=== PATIENT | female | born 1960 | race Caucasian/White ===

== ENCOUNTER 2019-11-01 23:57 | Inpatient (IN) | payer MEDICARE, MEDICAID, OTHER ==
[2019-11-02] MEDS ORDERED: Aspirin 325 MG TAB ONE (00:12)
[2019-11-02] MEDS ORDERED: Vancomycin 1 GM/200 ML BAG ONE (00:13)
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
[2019-11-02 01:18] LABS: CKMB 3.2 ng/mL (0-6.6)
[2019-11-02] MEDS ORDERED: Ondansetron PF 4 MG/2 ML Vial IVP PRN (02:19)
[2019-11-02] MEDS ORDERED: Ondansetron ODT 4 MG TAB PO PRN (02:19)
[2019-11-02] MEDS ORDERED: Acetaminophen 325 MG TAB PO PRN (02:19)
[2019-11-02 02:29] LABS: SARS-CoV-2 NAA Rapid Test Not Detected (NotDetected)
[2019-11-02 02:34] LABS: Iron 49 ug/dL (50-170); Iron Binding Capacity, Total 149 mcg/dL (265-497)
[2019-11-02 02:51] LABS: Thyroid Stimulating Hormone 19.83 uIU/mL (0.35-4.94)
[2019-11-02 03:29] LABS: Troponin I 0.053 ng/mL (< 0.028)
[2019-11-02] MEDS ORDERED: Levothyroxine Sodium 75 MCG TAB PO SCH (06:00)
[2019-11-02] MEDS: Lactated Ringer's 1,000 ML IV SCH ×2 (06:04→17:52)
[2019-11-02 06:48] LABS: Troponin I 0.045 ng/mL (< 0.028)
[2019-11-02 07:56] LABS: Ferritin 520.6 ng/mL (10-291)
[2019-11-02] MEDS: Cefepime 2 GM in Sodium Chloride 0.9% 100 ML IVPB SCH ×3 (08:48→23:18)
[2019-11-02] MEDS ORDERED: Famotidine/PF 20 mg/2ml Vial SLOW IVP SCH (09:00)
[2019-11-02] MEDS ORDERED: Vancomycin HCl 1.5 GM in Sodium Chloride 0.9% 250 ML 300 ML IVPB SCH (09:00)
[2019-11-02] MEDS ORDERED: Famotidine 20 MG TAB PO SCH (09:00)
[2019-11-02] MEDS: Clotrimazole 1 % Cream 30 GM TUBE TOP SCH ×2 (10:37→20:30)
[2019-11-02] MEDS: Enoxaparin Sodium 40 MG/0.4 ML SYRINGE SC SCH (10:37)
[2019-11-02] MEDS: Vancomycin 1 GM in Premix Bag 1 BAG IVPB SCH (12:28)
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
[2019-11-02 18:56] LABS: Legionella Urinary Ag Negative (Negative)
[2019-11-02 18:57] LABS: Strep pneumo Urine Ag NEGATIVE (NEGATIVE)
[2019-11-02] MEDS: levETIRAcetam 500 MG TAB PO SCH (20:30)
[2019-11-03] MEDS: Vancomycin 1 GM in Premix Bag 1 BAG IVPB SCH ×2 (00:49→12:13)
--- NOTE | 2019-11-03 05:55 | PDOC.FM ---
- Subjective Subjective: Patient is sitting up eating breakfast with nurse, nonverbal. Currently on 3L O2. No acute events overnight. - Objective MAR Reviewed: Yes Vital Signs & Weight: Vital Signs (12 hours) Temp Pulse Resp BP Pulse Ox 11/03/19 03:45 98.8 F 80 20 122/70 97 11/02/19 19:10 98.7 F 88 20 109/73 96 Weight Weight 57.379 kg I&O: 11/01/19 11/02/19 11/03/19 06:59 06:59 06:59 Intake Total 1385 Output Total 225 Balance 1160 Result Diagrams: 11/03/19 08:52 11/03/19 08:52 Radiology Reviewed by me: Yes Phys Exam - Physical Examination Constitutional: NAD well developed HEENT: PERRLA, moist MMs Neck: supple Respiratory: no wheezing, clear to auscultation bilateral Cardiovascular: RRR, no significant murmur Gastrointestinal: soft, positive bowel sounds Musculoskeletal: no edema Neurological: non-focal nonverbal Deviation from normal: macular rash bilateral feet, erythema with scaling, multiple, scattered Dx/Plan - Plan Plan: #Acute Hypoxic Resp Failure 2/2 PNA recent hospitalization for PNA requiring intubation, d/c 10/27 CXR: multifocal PNA Vanc, cefepime, levaquin due to recent hospitalization requiring intubation BNP 447, Echo: EF 50-55%, no diastolic d/f, Trop .049>.059>.053 Procal neg, covid neg, lactic acid 1 Ur legionella and strep penumonia neg -will continue to monitor oxygen status - CM consult for discharge planning #Normocytic Anemia Iron studies reveal likely anemia of chronic disease - will f/u with PCP #Tinea pedis - clotrimazole BID to affected area #Hx of Down syndrome # Dementia Discussed patients baseline with sister yesterday due to patient nonverbal, per sister patient appeared to be at baseline 11/01 - resumed home meds Hx Epilepsy - resumed home meds #Hx of hypothryoidism - resumed home meds #Hx of Osteoporosis - resume home meds DVT Proph: lovenox Diet: HH PCP: SILVIA ([place]) Dispo: LOS<48, likely d/c today
[2019-11-03] MEDS: Cefepime 2 GM in Sodium Chloride 0.9% 100 ML IVPB SCH ×3 (06:32→23:25)
[2019-11-03] MEDS: Lactated Ringer's 1,000 ML IV SCH ×2 (07:16→21:45)
[2019-11-03 08:59] LABS: #Basophils 0.1 thou/uL (0.0-0.2); #Eosinphils 0.2 thou/uL (0.0-0.7); #Lymphocytes 2.2 thou/uL (1.20-3.40); #Monocytes 0.4 thou/uL (0.11-0.59); #Neutrophils 4.8 thou/uL (1.40-6.50); %Basophils 1.3 % (0.0-1.0); %Eosinophils 3.1 % (0.0-10.0); %Lymphocytes 28.7 % (21.0-51.0); %Monocytes 5.4 % (0.0-10.0); %Neutrophils 61.4 % (42.0-75.0); Hemoglobin 10.3 g/dL (12.0-16.0); Mean Corpuscular HGB CONC 31.2 g/dL (32.0-36.0); Mean Corpuscular Hemoglobin 32.2 pg (27.0-31.0); Mean Platelet Volume 8.7 fL (7.4-10.4); Platelet Count 253 thou/uL (130-400); RBC Distribution Width 15.2 % (11.5-14.5); Red Blood Cell (RBC) Count 3.21 mill/uL (4.20-5.40); White Blood Cell (WBC) Count 7.8 thou/uL (4.8-10.8)
[2019-11-03] MEDS ORDERED: Non-Formulary Item 1 EACH (Oxybutynin Chloride [Oxybutynin Chloride Er] 10 MG) PO SCH (09:00)
[2019-11-03] MEDS ORDERED: Oxybutynin 5 MG TAB PO SCH (09:00)
[2019-11-03] MEDS ORDERED: CALCIUM CARBONATE 600 MG PO SCH (09:00)
[2019-11-03] MEDS ORDERED: Aspirin 81 mg Enteric Coated Tablet PO SCH (09:00)
[2019-11-03] MEDS ORDERED: Calcium Carbonate 600 MG TAB PO SCH (09:00)
[2019-11-03] MEDS ORDERED: Alendronate Sodium 70 mg Tablet PO SCH (09:00)
[2019-11-03] MEDS ORDERED: Levothyroxine Sodium 125 MCG TAB PO SCH (09:00)
[2019-11-03] MEDS ORDERED: GALANTAMINE HBR 8 MG PO SCH (09:00)
[2019-11-03 09:18] LABS: Anion Gap 9 mmol/L (10-20); BUN (Urea Nitrogen) 7 mg/dL (9.8-20.1); Calc. Creatinine Clearance 102 mL/min (70-130); Calcium 7.1 mg/dL (7.8-10.44); Carbon Dioxide 29 mmol/L (22-29); Chloride 101 mmol/L (98-107); Estimated GFR-MDRD Greater than 90; Glucose 75 mg/dL (70-105); Potassium 3.4 mmol/L (3.5-5.1); Sodium 136 mmol/L (136-145)
[2019-11-03] MEDS: levETIRAcetam 500 MG TAB PO SCH ×2 (09:51→21:37)
[2019-11-03] MEDS: Enoxaparin Sodium 40 MG/0.4 ML SYRINGE SC SCH (09:52)
[2019-11-03] MEDS: Clotrimazole 1 % Cream 30 GM TUBE TOP SCH ×2 (10:06→21:38)
[2019-11-03 12:34] LABS: Vancomycin, Trough 17.2 ug/mL
--- NOTE | 2019-11-03 14:07 | PRG ---
DATE OF SERVICE: 11/03/2019 Ms. Casper is awake and alert, in no distress. She demonstrates no respiratory distress nor any respiratory symptoms at all. We can begin to transition her to oral antibiotics in anticipation of discharge in 1 or 2 days. Job ID: [id number]
[2019-11-03] MEDS ORDERED: Mirtazapine 15 MG TAB PO SCH (14:15)
[2019-11-03] MEDS ORDERED: Lactated Ringer's 1,000 ML IV SCH (16:00)
[2019-11-04] MEDS ORDERED: Levothyroxine 150 MCG TAB PO SCH (06:00)
[2019-11-04] MEDS: Cefepime 2 GM in Sodium Chloride 0.9% 100 ML IVPB SCH ×2 (06:32→15:44)
[2019-11-04] MEDS ORDERED: Acetaminophen 325 MG TAB PER TUBE PRN (07:45)
[2019-11-04] MEDS ORDERED: Ondansetron ODT 4 MG TAB PER TUBE PRN (07:45)
--- NOTE | 2019-11-04 08:07 | PDOC.FM ---
- Subjective Subjective: Patient sitting up in bed, smiling. Per nurse she looks the best she has seen her. Yesterday evening, patient had hypotension, with lowest 88/58, and in the 90s to low 100s and she was given a bolus of fluids. Per nurse, she got report that they just switched her bp cuff this morning and thinks that could have been the cause. In the room her bp recheck was 113/80s. - Objective MAR Reviewed: Yes Vital Signs & Weight: Vital Signs (12 hours) Temp Pulse Resp BP Pulse Ox 11/04/19 04:00 97.5 F L 67 18 133/70 96 11/03/19 23:30 97.5 F L 69 18 95/61 97 Weight Weight 57.379 kg I&O: 11/03/19 11/04/19 11/05/19 06:59 06:59 06:59 Intake Total 1385 2490 Output Total 225 1700 Balance 1160 790 Result Diagrams: 11/03/19 08:52 11/03/19 08:52 Phys Exam - Physical Examination Constitutional: NAD HEENT: PERRLA, moist MMs Respiratory: no wheezing, clear to auscultation bilateral Cardiovascular: RRR, no significant murmur Gastrointestinal: soft, positive bowel sounds Musculoskeletal: no edema, pulses present Neurological: non-focal, moves all 4 limbs Deviation from normal: patient non-verbal, verbal at some times, baseline per sister Skin: no rash Dx/Plan - Plan Plan: #Acute Hypoxic Resp Failure 2/2 PNA recent hospitalization for PNA requiring intubation, d/c 10/27 CXR: multifocal PNA Vanc, cefepime, levaquin due to recent hospitalization requiring intubation BNP 447, Echo: EF 50-55%, no diastolic d/f, Trop .049>.059>.053 Procal neg, covid neg, lactic acid 1 Ur legionella and strep penumonia neg -will continue to monitor oxygen status - CM consult for discharge planning Hypotension low of 88/56 12/03, given 1L Bolus LR 90s-130s SBPs 110s this am, per nurse her cuff was changed this morning and may have been source of low bps - will continue to monitor #Normocytic Anemia Iron studies reveal likely anemia of chronic disease - will f/u with PCP #Tinea pedis - clotrimazole BID to affected area #Hx of Down syndrome # Dementia Discussed patients baseline with sister, per sister patient at baseline - resumed home meds Hx Epilepsy - resumed home meds #Hx of hypothryoidism - resumed home meds #Hx of Osteoporosis - resume home meds DVT Proph: lovenox Diet: HH PCP: SILVIA ([place]) Dispo: LOS<48, likely d/c today
[2019-11-04] MEDS: levETIRAcetam 500 MG TAB PER TUBE SCH ×2 (09:01→22:15)
[2019-11-04] MEDS: Calcium Carbonate 600 MG TAB PER TUBE SCH (09:01)
[2019-11-04] MEDS: Divalproex Sodium 125 mg Sprinkle Capsule PER TUBE SCH ×3 (09:02→22:15)
[2019-11-04] MEDS: Oxybutynin 5 MG TAB PER TUBE SCH (09:02)
[2019-11-04] MEDS: Enoxaparin Sodium 40 MG/0.4 ML SYRINGE SC SCH (09:04)
[2019-11-04] MEDS: Mirtazapine 15 MG TAB PER TUBE SCH (09:10)
[2019-11-04] MEDS: Clotrimazole 1 % Cream 30 GM TUBE TOP SCH ×2 (09:24→22:15)
[2019-11-04 14:31] LABS: #Basophils 0.1 thou/uL (0.0-0.2); #Eosinphils 0.2 thou/uL (0.0-0.7); #Monocytes 0.4 thou/uL (0.11-0.59); %Basophils 1.1 % (0.0-1.0); %Eosinophils 4.1 % (0.0-10.0); %Lymphocytes 35.2 % (21.0-51.0); %Monocytes 6.3 % (0.0-10.0); %Neutrophils 53.3 % (42.0-75.0); Hemoglobin 9.8 g/dL (12.0-16.0); Mean Corpuscular HGB CONC 31.8 g/dL (32.0-36.0); Mean Corpuscular Hemoglobin 32.7 pg (27.0-31.0); Mean Platelet Volume 8.8 fL (7.4-10.4); Platelet Count 237 thou/uL (130-400); RBC Distribution Width 15.2 % (11.5-14.5); White Blood Cell (WBC) Count 5.7 thou/uL (4.8-10.8)
[2019-11-04 14:54] LABS: ALT (SGPT) 11 U/L (8-55); AST (SGOT) 19 U/L (5-34); Albumin 1.8 g/dL (3.5-5.0); Alkaline Phosphatase 48 U/L (40-110); Anion Gap 7 mmol/L (10-20); BUN (Urea Nitrogen) 5 mg/dL (9.8-20.1); Bilirubin, Total 0.2 mg/dL (0.2-1.2); Calc. Creatinine Clearance 102 mL/min (70-130); Calcium 7.6 mg/dL (7.8-10.44); Carbon Dioxide 35 mmol/L (22-29); Chloride 103 mmol/L (98-107); Estimated GFR-MDRD Greater than 90; Globulin 2.3 g/dL (2.4-3.5); Glucose 82 mg/dL (70-105); Potassium 3.7 mmol/L (3.5-5.1); Protein, Total 4.1 g/dL (6.0-8.3); Sodium 141 mmol/L (136-145)
--- NOTE | 2019-11-04 17:03 | PRG ---
DATE OF SERVICE: 11/04/2019 Ms. Casper is resting quietly in bed. She has no cough. She has no respiratory distress whatsoever. Her lungs are sounding clearer. We are awaiting placement and she can likely be discharged on Levaquin to complete 4 more days of antibiotics. Job ID: [id number]
[2019-11-04] MEDS: Lactated Ringer's 1,000 ML IV SCH (17:18)
[2019-11-05] MEDS: Cefepime 2 GM in Sodium Chloride 0.9% 100 ML IVPB SCH ×4 (00:50→22:39)
[2019-11-05] MEDS: Lactated Ringer's 1,000 ML IV SCH ×3 (00:57→20:37)
--- NOTE | 2019-11-05 05:20 | PDOC.FM ---
- Subjective Subjective: Patient is sleeping in bed. No acute events overnight. - Objective MAR Reviewed: Yes Vital Signs & Weight: Vital Signs (12 hours) Temp Pulse Resp BP Pulse Ox 11/05/19 04:00 97.8 F 68 18 118/71 97 11/05/19 00:00 97.8 F 68 19 117/72 97 11/04/19 21:00 97.8 F 66 18 124/66 97 Weight Admit Weight 57.379 kg Weight 59.676 kg I&O: 11/03/19 11/04/19 11/05/19 06:59 06:59 06:59 Intake Total 1385 2490 530 Output Total 225 1700 650 Balance 1160 790 -120 Result Diagrams: 11/04/19 14:19 11/04/19 14:19 Phys Exam - Physical Examination Constitutional: NAD HEENT: PERRLA, moist MMs Respiratory: clear to auscultation bilateral expiratory wheeze Cardiovascular: RRR, no significant murmur Gastrointestinal: soft, non-tender, positive bowel sounds Musculoskeletal: no edema, pulses present Neurological: non-focal, moves all 4 limbs Deviation from normal: nonverbal, baseline Skin: no rash Dx/Plan - Plan Plan: #Acute Hypoxic Resp Failure 2/2 PNA recent hospitalization for PNA requiring intubation, d/c 10/27 CXR: multifocal PNA Vanc, cefepime, levaquin due to recent hospitalization requiring intubation BNP 447, Echo: EF 50-55%, no diastolic d/f, Trop .049>.059>.053 Procal neg, covid neg, lactic acid 1 Ur legionella and strep penumonia neg -will continue to monitor oxygen status -Per CM: Patient will return to [facility] 11/06 Hypotension, resolved low of 88/56 12/03, given 1L Bolus LR 90s-130s SBPs 110s this am, per nurse her cuff was changed this morning and may have been source of low bps - will continue to monitor #Normocytic Anemia Iron studies reveal likely anemia of chronic disease - will f/u with PCP #Tinea pedis - clotrimazole BID to affected area #Hx of Down syndrome # Dementia Discussed patients baseline with sister, per sister patient at baseline - resumed home meds Hx Epilepsy - resumed home meds #Hx of hypothryoidism - resumed home meds #Hx of Osteoporosis - resume home meds DVT Proph: lovenox Diet: HH PCP: SILVIA ([place]) Dispo: LOS >48, due to returning to previous facility Addendum - Attending - Attending Attestation Date/Time: 11/05/19 0131 I personally evaluated the patient and discussed the management with Dr. Carlson. I agree with the History, Examination, Assessment and Plan documented above with any addition or exceptions noted below. Patient is stable. She is awaiting placement to a nursing facility in [place] on Thursday.
[2019-11-05] MEDS: Levothyroxine 150 MCG TAB PER TUBE SCH (06:17)
[2019-11-05] MEDS: Calcium Carbonate 600 MG TAB PER TUBE SCH (09:11)
[2019-11-05] MEDS: levETIRAcetam 500 MG TAB PER TUBE SCH ×2 (09:11→20:21)
[2019-11-05] MEDS: Enoxaparin Sodium 40 MG/0.4 ML SYRINGE SC SCH (09:11)
[2019-11-05] MEDS: Mirtazapine 15 MG TAB PER TUBE SCH (09:12)
[2019-11-05] MEDS: Oxybutynin 5 MG TAB PER TUBE SCH (09:12)
[2019-11-05] MEDS: Divalproex Sodium 125 mg Sprinkle Capsule PER TUBE SCH ×3 (09:13→20:21)
[2019-11-05] MEDS: Clotrimazole 1 % Cream 30 GM TUBE TOP SCH ×2 (09:15→20:22)
--- NOTE | 2019-11-06 05:33 | PDOC.FM ---
- Subjective Subjective: Patient resting comfortably in bed. O2 on 1.5L. No acute events overnight. - Objective Vital Signs & Weight: Vital Signs (12 hours) Temp Pulse Resp BP Pulse Ox 11/06/19 03:43 97.9 F 78 24 H 120/78 94 L 11/05/19 19:45 95 11/05/19 19:14 97.6 F 64 18 136/93 H 95 Weight Admit Weight 57.379 kg Weight 59.676 kg I&O: 11/04/19 11/05/19 11/06/19 06:59 06:59 06:59 Intake Total 2490 1430 1165 Output Total 1700 1650 2000 Balance 719 -991 -619 Result Diagrams: 11/04/19 14:19 11/04/19 14:19 Phys Exam - Physical Examination Constitutional: NAD HEENT: PERRLA, moist MMs Respiratory: no wheezing, clear to auscultation bilateral Cardiovascular: RRR, no significant murmur Gastrointestinal: soft, non-tender, positive bowel sounds Musculoskeletal: no edema, pulses present Neurological: non-focal, moves all 4 limbs Deviation from normal: nonverbal at baseline Deviation from normal: improved scattered red scaling rash on bilateral feet Dx/Plan - Plan Plan: #Acute Hypoxic Resp Failure 2/ PNA recent hospitalization for PNA requiring intubation, d/c 10/27 CXR: multifocal PNA Vanc, cefepime, levaquin due to recent hospitalization requiring intubation BNP 447, Echo: EF 50-55%, no diastolic d/f, Trop .049>.059>.053 Procal neg, covid neg, lactic acid 1 Ur legionella and strep penumonia neg -will continue to monitor oxygen status -Per CM: Patient will return to [facility] 11/06 Hypotension, resolved low of 88/56 12/03, given 1L Bolus LR 90s-130s SBPs per nurse her cuff was source of low bps, resolved after adjusting - will continue to monitor #Normocytic Anemia Iron studies reveal likely anemia of chronic disease - will f/u with PCP #Tinea pedis - clotrimazole BID to affected area #Hx of Down syndrome # Dementia Discussed patients baseline with sister, per sister patient at baseline - resumed home meds Hx Epilepsy - resumed home meds #Hx of hypothryoidism - resumed home meds #Hx of Osteoporosis - resume home meds DVT Proph: lovenox Diet: HH PCP: SILVIA ([place]) Dispo: LOS >48, due to returning to previous facility Addendum - Attending - Attending Attestation Date/Time: 11/06/19 7148 I personally evaluated the patient and discussed the management with Dr. Carlson. I agree with the History, Examination, Assessment and Plan documented above with any addition or exceptions noted below. Patient rested well. She will d/c [facility] [place] tomorrow.
[2019-11-06] MEDS: Levothyroxine 150 MCG TAB PER TUBE SCH ×2 (05:47→05:52)
[2019-11-06] MEDS: Cefepime 2 GM in Sodium Chloride 0.9% 100 ML IVPB SCH ×2 (06:18→15:20)
[2019-11-06] MEDS: Divalproex Sodium 125 mg Sprinkle Capsule PER TUBE SCH ×3 (09:29→21:35)
[2019-11-06] MEDS: Calcium Carbonate 600 MG TAB PER TUBE SCH (09:29)
[2019-11-06] MEDS: Oxybutynin 5 MG TAB PER TUBE SCH (09:30)
[2019-11-06] MEDS: levETIRAcetam 500 MG TAB PER TUBE SCH ×2 (09:31→21:36)
[2019-11-06] MEDS: Mirtazapine 15 MG TAB PER TUBE SCH (09:31)
[2019-11-06] MEDS: Enoxaparin Sodium 40 MG/0.4 ML SYRINGE SC SCH (09:32)
[2019-11-06] MEDS: Clotrimazole 1 % Cream 30 GM TUBE TOP SCH ×2 (09:32→21:35)
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
[2019-11-06] MEDS: Lactated Ringer's 1,000 ML IV SCH (15:23)
[2019-11-07] MEDS: Cefepime 2 GM in Sodium Chloride 0.9% 100 ML IVPB SCH ×2 (00:28→06:19)
[2019-11-07 04:33] LABS: #Basophils 0.1 thou/uL (0.0-0.2); #Eosinphils 0.2 thou/uL (0.0-0.7); #Lymphocytes 1.6 thou/uL (1.20-3.40); #Monocytes 0.5 thou/uL (0.11-0.59); #Neutrophils 2.1 thou/uL (1.40-6.50); %Basophils 1.5 % (0.0-1.0); %Eosinophils 4.7 % (0.0-10.0); %Lymphocytes 36.1 % (21.0-51.0); %Neutrophils 47.7 % (42.0-75.0); Mean Corpuscular Hemoglobin 32.4 pg (27.0-31.0); Platelet Count 192 thou/uL (130-400); RBC Distribution Width 14.9 % (11.5-14.5); Red Blood Cell (RBC) Count 3.08 mill/uL (4.20-5.40); White Blood Cell (WBC) Count 4.5 thou/uL (4.8-10.8)
[2019-11-07 04:48] LABS: ALT (SGPT) 8 U/L (8-55); AST (SGOT) 20 U/L (5-34); Albumin 1.8 g/dL (3.5-5.0); Alkaline Phosphatase 45 U/L (40-110); Anion Gap 10 mmol/L (10-20); BUN (Urea Nitrogen) 5 mg/dL (9.8-20.1); Bilirubin, Total 0.2 mg/dL (0.2-1.2); Calc. Creatinine Clearance 108 mL/min (70-130); Calcium 7.4 mg/dL (7.8-10.44); Carbon Dioxide 29 mmol/L (22-29); Chloride 101 mmol/L (98-107); Estimated GFR-MDRD Greater than 90; Globulin 2.6 g/dL (2.4-3.5); Glucose 69 mg/dL (70-105); Potassium 3.8 mmol/L (3.5-5.1); Protein, Total 4.4 g/dL (6.0-8.3); Sodium 136 mmol/L (136-145)
[2019-11-07] MEDS: Levothyroxine 150 MCG TAB PER TUBE SCH (06:19)
--- NOTE | 2019-11-07 06:20 | PDOC.FM ---
- Subjective Subjective: Patient sleeping in bed. Nurse reports that irritation and spotting from purewic allergy and trauma improved. No acute events overnight. - Objective MAR Reviewed: Yes Vital Signs & Weight: Vital Signs (12 hours) Temp Pulse Resp BP Pulse Ox 11/07/19 04:00 97.8 F 69 18 119/68 94 L 11/06/19 20:00 97.4 F L 65 18 113/72 98 Weight Admit Weight 57.379 kg Weight 59.676 kg I&O: 11/05/19 11/06/19 11/07/19 06:59 06:59 06:59 Intake Total 1430 2385 1140 Output Total 1650 2600 Balance -220 -215 1140 Result Diagrams: 11/07/19 04:04 11/07/19 04:04 Phys Exam - Physical Examination Constitutional: NAD HEENT: PERRLA, moist MMs Respiratory: no wheezing, clear to auscultation bilateral Cardiovascular: RRR, no significant murmur Gastrointestinal: soft, non-tender Musculoskeletal: no edema, pulses present nonverbal per baseline Deviation from normal: scattered erythema in groin region, improved; trace blood in diaper Dx/Plan - Plan Plan: #Acute Hypoxic Resp Failure 2/2 PNA recent hospitalization for PNA requiring intubation, d/c 10/27 CXR: multifocal PNA Vanc, cefepime, levaquin due to recent hospitalization requiring intubation, vanc and cefepime stopped, will continue levaquin today + 1 day BNP 447, Echo: EF 50-55%, no diastolic d/f, Trop .049>.059>.053 Procal neg, covid neg, lactic acid 1 Ur legionella and strep penumonia neg -will continue to monitor oxygen status -Per CM: Patient will return to [facility] 11/06 #Normocytic Anemia Iron studies reveal likely anemia of chronic disease - will f/u with PCP #Tinea pedis - clotrimazole BID to affected area Hypotension, resolved low of 88/56 12/03, given 1L Bolus LR 90s-130s SBPs per nurse her cuff was source of low bps, resolved after adjusting - will continue to monitor #Hx of Down syndrome # Dementia Discussed patients baseline with sister, per sister patient at baseline - resumed home meds Hx Epilepsy - resumed home meds #Hx of hypothryoidism - resumed home meds #Hx of Osteoporosis - resume home meds DVT Proph: lovenox Diet: HH PCP: SILVIA ([place]) Dispo: LOS >48, due to returning to previous facility Addendum - Attending - Attending Attestation Date/Time: 11/07/19 6035 I personally evaluated the patient and discussed the management with Dr. Carlson. I agree with the History, Examination, Assessment and Plan documented above with any addition or exceptions noted below. Patient stable and near baseline. We will work to discharge her back to facility. No further need for continued antibiotics. Continue O2 on discharge.
[2019-11-07] MEDS: Lactated Ringer's 1,000 ML IV SCH (07:23)
[2019-11-07] MEDS: Enoxaparin Sodium 40 MG/0.4 ML SYRINGE SC SCH (09:44)
[2019-11-07] MEDS: Clotrimazole 1 % Cream 30 GM TUBE TOP SCH ×2 (12:53→20:47)
[2019-11-07 13:41] VITALS: BMI 26.8
[2019-11-07] MEDS: Divalproex Sodium 125 mg Sprinkle Capsule PER TUBE SCH ×2 (15:02→16:39)
[2019-11-07] MEDS: levETIRAcetam 500 MG TAB PER TUBE SCH (15:03)
[2019-11-07] MEDS ORDERED: Fleet Enema 133 ML BOT PR SCH (15:30)
--- NOTE | 2019-11-07 15:36 | PQF ---
CLINICAL DOCUMENTATION CLARIFICATION FORM: Dear Dr. Carlson Date: 11/07/19 Please exercise your independent, professional judgment in responding to the clarification form. Clinical indicators are provided on the bottom of this form for your review. Please check appropriate box(es): [ ] Aspiration Pneumonia [ ] Empirically treating Gram Negative Pneumonia [ ] Empirically treating Anaerobic Pneumonia [ ] Simple Pneumonia [x] Pneumonia of unknown etiology [ ] Other diagnosis [ ] Unable to determine In addition, please specify: Present on Admission (POA): [x] Yes [ ] No [ ] Unable to determine For continuity of documentation, please document condition throughout progress notes and discharge summary. Thank You. DX: "MULTIFOCAL PNEUMONIA" (PN 11/06- [facility]) RISKS: RECENT HOSPITALIZATION REQUIRING INTUBATION (PN 11/06) ACUTE HYPOXIC RESPIRATORY FAILURE THIS ADMISSION (PN 11/06) TREATMENT: IV CEFEPIME (11/01-PRESENT) IV LEVAQUIN (11/01-PRESENT) IV VANCOMYCIN (11/01) SUPPLEMENTAL OXYGEN (H&P- CULVER) CDS Signature: Tabitha Cleaning RN Phone #: [phone] Date: 11/07/19 This is a permanent part of the Medical Record [facility]
[2019-11-07] MEDS: Oxybutynin 5 MG TAB PER TUBE SCH (16:38)
[2019-11-07] MEDS: Calcium Carbonate 600 MG TAB PER TUBE SCH (16:39)
[2019-11-07] MEDS: Mirtazapine 15 MG TAB PER TUBE SCH (16:40)
[2019-11-07] MEDS ORDERED: Ondansetron ODT 4 MG TAB PO PRN (19:45)
[2019-11-07] MEDS ORDERED: Acetaminophen 325 MG TAB PO PRN (19:45)
[2019-11-07] MEDS: levETIRAcetam 500 MG TAB PO SCH (20:48)
[2019-11-07] MEDS: Divalproex Sodium 125 mg Sprinkle Capsule PO SCH (20:48)
[2019-11-07] MEDS ORDERED: Temazepam 15 MG CAP PO SCH (21:00)
[2019-11-07] MEDS ORDERED: TEMAZEPAM 30 MG PO SCH (21:00)
--- NOTE | 2019-11-08 05:09 | PDOC.FM ---
- Subjective Subjective: Patient is resting comfortably in bed. No acute events overnight. Patient had a large bowel movement yesterday afternoon and ate dinner and took her medications last night. - Objective MAR Reviewed: Yes Vital Signs & Weight: Vital Signs (12 hours) Temp Pulse Resp BP Pulse Ox 11/08/19 03:36 98.6 F 82 14 134/62 96 11/08/19 00:02 92 L 11/07/19 19:30 98.0 F 76 14 112/56 L 94 L Weight Admit Weight 57.379 kg Weight 58.287 kg I&O: 11/06/19 11/07/19 11/08/19 06:59 06:59 06:59 Intake Total 2385 2065 1070 Output Total 2600 Balance -215 2065 1070 Result Diagrams: 11/07/19 04:04 11/07/19 04:04 Phys Exam - Physical Examination Constitutional: NAD HEENT: PERRLA, moist MMs Respiratory: no wheezing, clear to auscultation bilateral Cardiovascular: RRR, no significant murmur Gastrointestinal: soft, non-tender, positive bowel sounds Musculoskeletal: no edema, pulses present Neurological: non-focal, moves all 4 limbs nonverbal per baseline -: No erythema or scattered rash in the groin region, no blood in diaper Dx/Plan - Plan Plan: #Acute Hypoxic Resp Failure 2/2 PNA recent hospitalization for PNA requiring intubation, d/c 10/27 CXR: multifocal PNA Vanc, cefepime, levaquin due to recent hospitalization requiring intubation, vanc and cefepime stopped, will continue levaquin today + 1 day BNP 447, Echo: EF 50-55%, no diastolic d/f, Trop .049>.059>.053 Procal neg, covid neg, lactic acid 1 Ur legionella and strep penumonia neg -will continue to monitor oxygen status -Patient will transfer back to [place] 11/07 #Normocytic Anemia Iron studies reveal likely anemia of chronic disease - will f/u with PCP #Tinea pedis - clotrimazole BID to affected area Hypotension, resolved low of 88/56 12/03, given 1L Bolus LR 90s-130s SBPs per nurse her cuff was source of low bps, resolved after adjusting - will continue to monitor #Hx of Down syndrome # Dementia Discussed patients baseline with sister, per sister patient at baseline - resumed home meds Hx Epilepsy - resumed home meds #Hx of hypothryoidism - resumed home meds #Hx of Osteoporosis - resume home meds DVT Proph: lovenox Diet: HH PCP: [facility] ([place], [place]) Dispo: LOS <48, due to returning to previous facility Addendum - Attending - Attending Attestation Date/Time: 11/08/19 1064 I personally evaluated the patient and discussed the management with Dr. Carlson. I agree with the History, Examination, Assessment and Plan documented above with any addition or exceptions noted below. Patient stable for discharge since yesterday. Awaiting CM to arrange her transport to [place].
[2019-11-08] MEDS ORDERED: Levothyroxine 150 MCG TAB PO SCH (06:00)
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
[2019-11-08 08:08] VITALS: BP 134/57; TEMP 96.7
[2019-11-08] MEDS ORDERED: levETIRAcetam 500 mg/5 ml Oral Solution PO SCH (09:00)
[2019-11-08] MEDS ORDERED: Calcium Carbonate 600 MG TAB PO SCH (09:00)
[2019-11-08] MEDS ORDERED: Mirtazapine 15 MG TAB PO SCH (09:00)
[2019-11-08] MEDS ORDERED: Oxybutynin 5 MG TAB PO SCH (09:00)
[2019-11-08] MEDS: Clotrimazole 1 % Cream 30 GM TUBE TOP SCH (09:07)
[2019-11-08] MEDS: Enoxaparin Sodium 40 MG/0.4 ML SYRINGE SC SCH (09:08)
[2019-11-08] MEDS: Divalproex Sodium 125 mg Sprinkle Capsule PO SCH (11:53)
[2019-11-08] MEDS: levETIRAcetam 500 MG TAB PO SCH (11:54)
== END 2019-11-08 11:30 | DRG 193 ==
LOC: ERS 23:57 → 2NO 11-02 01:39
PROVIDERS: ADMIT Family Medicine; ATTEND Family Medicine
DX: J18.9 Pneumonia, unspecified organism (principal); J96.01 Acute respiratory failure with hypoxia; E03.9 Hypothyroidism, unspecified; Q90.9 Down syndrome, unspecified; F03.90 Unspecified dementia, unspecified severity, without behavioral disturbance, psychotic disturbance, mood disturbance, and anxiety; Z20.828 Contact with and (suspected) exposure to other viral communicable diseases; E78.5 Hyperlipidemia, unspecified; G40.909 Epilepsy, unspecified, not intractable, without status epilepticus; M81.0 Age-related osteoporosis without current pathological fracture; I11.0 Hypertensive heart disease with heart failure; I50.9 Heart failure, unspecified; D63.8 Anemia in other chronic diseases classified elsewhere; B35.3 Tinea pedis; Z79.82 Long term (current) use of aspirin; Z91.040 Latex allergy status; Z88.8 Allergy status to other drugs, medicaments and biological substances; R21 Rash and other nonspecific skin eruption
CPT/HCPCS: 36415; 36416; 80048; 80053; 80202; 82040; 82553; 82607; 82728; 82746; 83540; 83550; 83880; 84145; 84439; 84443; 84481; 84484; 85025; 87449; 87899; 93005; 93306; 96365; J0692; J1650; J1956; J3370; J3490; U0002